=== PATIENT | female | born 1940 | race Caucasian/White ===

== ENCOUNTER 2018-10-03 09:43 | Emergency (ER) | payer MEDICARE, OTHER ==
[~2018-10-03] VITALS: Ht 162.6 cm; Wt 80.0 kg
[2018-10-03 09:47] VITALS: BP 158/63
--- NOTE | 2018-10-03 09:56 | NUR ---
PT BIB [facility] TO ED FOR GL[facility] THIS AM AFTER SLIPPING ON ICE. PT REPORTS PAIN TO RIGHT HAND AND LEFT ANKLE. ICE ON LEFT ANKLE PLACED BY EMT. 100 FENTANYL, 600 IBUPROFEN AND 4 ZOFRAN GIVEN PATIENT ACCOUNTS COORDINATOR. IV ESTABLISHED PATIENT ACCOUNTS COORDINATOR. PAIN 9/10 IN FIELD, NOW 5/10. CONNECTED TO MONITORS. VSS. CALL LIGHT WITHIN REACH. NO NEEDS AT THIS TIME. AWAITNG MD ASSESSMENT.
[2018-10-03] MEDS ORDERED: mevacor PO (10:06)
[2018-10-03] MEDS ORDERED: HYDR25TA6 PO (10:06)
[2018-10-03] MEDS ORDERED: LORA-446 PO (10:06)
[2018-10-03] MEDS ORDERED: lexapro PO (10:06)
[2018-10-03] MEDS ORDERED: TRAZ50TA66 PO (10:06)
[2018-10-03] MEDS ORDERED: LEVO112T4 PO (10:06)
[2018-10-03] MEDS ORDERED: ATEN25TA PO (10:06)
[2018-10-03] MEDS ORDERED: GABA800T5 PO (10:06)
--- NOTE | 2018-10-03 10:06 | NUR ---
md assessment complete. awaiting orders.
[2018-10-03 10:25] LABS: MEAN CORPUSCULAR HEMOGLOBIN 30.8 pg (27.0-34.8); MEAN CORPUSCULAR HGB CONC 34.4 g/dL (32.4-35.8); MEAN CORPUSCULAR VOLUME 89.6 fL (80-100); MEAN PLATELET VOLUME 9.5 fL (7.4-10.4); PLATELET COUNT 144 x10^3/uL (130-400); RED BLOOD COUNT 4.31 x10^6/uL (3.82-5.3); RED CELL DISTRIBUTION WIDTH 13.4 % (9.6-15.2)
[2018-10-03 10:32] LABS: ALBUMIN 3.8 g/dL (3.4-5.0); ANION GAP 5 mmol/L (5-15); CALCIUM 9.9 mg/dL (8.5-10.1); CHLORIDE 106 mmol/L (98-107)
[2018-10-03 10:40] LABS: MD YES
[2018-10-03 10:42] LABS: LYMPH#(MANUAL) 1.81 x10^3/uL (1-3.4); LYMPHS% (MANUAL) 27 % (22-44); MONOS#(MANUAL) 1.41 x10^3/uL (0.3-2.7); MONOS% (MANUAL) 21 % (2-9); REACTIVE LYMPHS # (MANUAL) 0.27 x10^3/uL (0-0); REACTIVE LYMPHS % (MANUAL) 4 % (0-0); SEG#(MANUAL) 3.22 x10^3/uL (1.8-6.8); SEGS% (MANUAL) 48 % (42-75)
[2018-10-03 10:43] LABS: <PLATELET ESTIMATE> ADEQUATE; <RBC MORPHOLOGY> NORMAL; LARGE PLATELETS 1+
[2018-10-03] MEDS ORDERED: POTASSIUM CHLORIDE 10% 40 MEQ/30 ML UDC PO ONE (11:00)
[2018-10-03] MEDS ORDERED: POTASSIUM CHLORIDE 20 MEQ TAB.ER.PRT ONE (11:32)
== END 2018-10-03 12:23 | disposition home or self-care (01) ==
LOC: ED 11:09
DX: S82.62XA Displaced fracture of lateral malleolus of left fibula, initial encounter for closed fracture (principal); E87.6 Hypokalemia; R42 Dizziness and giddiness; I10 Essential (primary) hypertension; W00.0XXA Fall on same level due to ice and snow, initial encounter; Y93.89 Activity, other specified; Y92.410 Unspecified street and highway as the place of occurrence of the external cause; Y99.8 Other external cause status
CPT/HCPCS: 29515; 36415; 80048; 82040; 85025; 93005; 99284